=== PATIENT | male | born 1965 | race Caucasian/White ===

== ENCOUNTER 2022-06-02 22:12 | Inpatient (IN) | payer MEDICAID ==
[~2022-06-02] VITALS: Ht 170.2 cm; Wt 80.7 kg
[2022-06-02 23:46] LABS: HEMATOCRIT. 33.4 % (42.0-52.0); HEMOGLOBIN. 11.2 g/dL (14.0-18.0); MEAN CORPUSCULAR HEMOGLOBIN 33.6 pg (28.0-32.0); MEAN CORPUSCULAR VOLUME 99.6 fL (80.0-94.0); MEAN PLATELET VOLUME 7.4 fl (7.4-10.4); PLATELET 127 x1000/uL (130-400); RED BLOOD CELL COUNT 3.35 mill/uL (4.7-6.1)
[2022-06-03] LABS: CHLORIDE 94 mEq/L (98-107); ETHANOL BLOOD < 10 mg/dL
[2022-06-03 01:08] LABS: PLATELET ESTIMATE NORMAL
[2022-06-03] MEDS ORDERED: ASPIRIN 325MG EC TABLET PO ONE (02:15)
[2022-06-03 09:50] VITALS: BP 125/50
[2022-06-03 12:00] VITALS: BP 128/68
[2022-06-03 13:57] VITALS: BP 125/50
[2022-06-03] MEDS ORDERED: VANCOMYCIN 1G PREMIX 200 ML IV SCH (14:00)
[2022-06-03] MEDS ORDERED: ACETAMINOPHEN 325MG TABLET PO PRN (14:00)
[2022-06-03] MEDS ORDERED: ONDANSETRON HCL 4MG/2ML INJ IV PRN (14:00)
[2022-06-03] MEDS ORDERED: CLONIDINE 0.1MG TABLET PO PRN (14:00)
[2022-06-03 14:30] LABS: HEPATITIS B SURFACE ANTIGEN NEGATIVE
[2022-06-03] MEDS ORDERED: LEVOFLOXACIN 500MG PREMIX 100 ML IV SCH (15:00)
[2022-06-03] MEDS ORDERED: LEVE500T98 MT (15:35)
[2022-06-03] MEDS ORDERED: NEPVIT MT (15:35)
[2022-06-03] MEDS ORDERED: BISA10SU62 RC (15:35)
[2022-06-03] MEDS ORDERED: HYDR-4134 MT (15:35)
[2022-06-03] MEDS ORDERED: SEVE800T8 MT (15:35)
[2022-06-03] MEDS ORDERED: TOPUD MT (15:35)
[2022-06-03] MEDS ORDERED: LABE300T3 MT (15:35)
[2022-06-03] MEDS ORDERED: MOM PO (15:35)
[2022-06-03 16:00] VITALS: BP 126/70
[2022-06-03] MEDS ORDERED: VANCOMYCIN 1.25GM PMX (XELLIA) 250 ML IV NR (16:00)
[2022-06-03] MEDS: ENOXAPARIN 30MG/0.3ML SYR SUBCUT SCH (17:32)
[2022-06-03 18:17] LABS: CREATINE KINASE MB FRACTION 3.3 ng/mL (0.5-3.6)
[2022-06-03 20:00] VITALS: BP 110/53
[2022-06-03] MEDS ORDERED: DEXTROSE 50% WATER 50ML SYRINGE IV PRN (23:30)
[2022-06-04] VITALS: BP 115/62
[2022-06-04 04:00] VITALS: BP 110/64
[2022-06-04] MEDS: BLOOD SUGAR DIAGNOSTIC STRIP TEST SCH ×4 (07:10→21:00)
[2022-06-04] MEDS: INSULIN LISPRO 100 UNITS/ML SUBCUT SCH ×4 (07:40→21:00)
[2022-06-04 08:00] VITALS: BP 102/50
[2022-06-04 12:00] VITALS: BP 113/50
[2022-06-04] MEDS: ENOXAPARIN 30MG/0.3ML SYR SUBCUT SCH (15:29)
[2022-06-04 16:00] VITALS: BP 112/52
[2022-06-04 20:00] VITALS: BP 110/54
[2022-06-05] VITALS: BP 106/52
[2022-06-05 00:01] LABS: BASOPHILS % 0.9 % (0.0-2.0); EOSINOPHILS % 1.5 % (0.0-5.0); HEMATOCRIT. 35.7 % (42.0-52.0); HEMOGLOBIN. 12.2 g/dL (14.0-18.0); LYMPHOCYTES % 18.1 % (20.0-50.0); MEAN CORPUSCULAR HEMOGLOBIN 34.4 pg (28.0-32.0); MEAN CORPUSCULAR VOLUME 100.8 fL (80.0-94.0); MEAN PLATELET VOLUME 7.2 fl (7.4-10.4); MONOCYTES % 9.7 % (2.0-8.0); NEUTROPHILS % 69.8 % (40.0-76.0); PLATELET 125 x1000/uL (130-400); RED BLOOD CELL COUNT 3.54 mill/uL (4.7-6.1); RED CELL DISTRIBUTION WIDTH 15.3 % (11.6-14.6)
[2022-06-05 00:16] LABS: CHLORIDE 98 mEq/L (98-107)
[2022-06-05 04:00] VITALS: BP 107/52
[2022-06-05] MEDS: INSULIN LISPRO 100 UNITS/ML SUBCUT SCH ×4 (07:19→21:00)
[2022-06-05] MEDS: BLOOD SUGAR DIAGNOSTIC STRIP TEST SCH ×4 (07:19→21:00)
[2022-06-05 07:54] VITALS: BP 90/50
[2022-06-05 11:06] VITALS: BP 118/41
[2022-06-05] MEDS: ENOXAPARIN 30MG/0.3ML SYR SUBCUT SCH (14:04)
[2022-06-05] MEDS ORDERED: LEVOFLOXACIN 250MG PREMIX 50 ML IV SCH (15:00)
[2022-06-05 15:10] VITALS: BP 135/46
[2022-06-05] MEDS ORDERED: VANCOMYCIN 750MG PMX (XELLIA) 150 ML IV SCH (18:00)
[2022-06-05 20:00] VITALS: BP 120/62
[2022-06-06] VITALS: BP 106/51
[2022-06-06 04:00] VITALS: BP 111/62
[2022-06-06] MEDS: INSULIN LISPRO 100 UNITS/ML SUBCUT SCH ×4 (07:09→21:00)
[2022-06-06] MEDS: BLOOD SUGAR DIAGNOSTIC STRIP TEST SCH ×4 (07:09→21:00)
[2022-06-06 07:38] VITALS: BP 90/50
[2022-06-06 11:39] VITALS: BP 126/85
[2022-06-06 13:02] LABS: HEMOGLOBIN. 11.5 g/dL (14.0-18.0); MEAN CORPUSCULAR HEMOGLOBIN 33.5 pg (28.0-32.0); MEAN CORPUSCULAR VOLUME 102.3 fL (80.0-94.0); MEAN PLATELET VOLUME 8.9 fl (7.4-10.4); PLATELET 68 x1000/uL (130-400); RED BLOOD CELL COUNT 3.42 mill/uL (4.7-6.1); RED CELL DISTRIBUTION WIDTH 15.7 % (11.6-14.6)
[2022-06-06 13:08] LABS: INR 1.3; PARTIAL THROMBOPLASTIN TIME 26.1 sec (23.4-31.0); PROTHROMBIN TIME 13.6 sec (9.6-11.0)
[2022-06-06 14:08] LABS: NUCLEATED RED BLOOD CELLS 1 /100 WBC
[2022-06-06 14:09] LABS: PLATELET ESTIMATE DECREASED
[2022-06-06 15:04] VITALS: BP 90/50
[2022-06-06 20:00] VITALS: BP 95/45
[2022-06-06 20:24] LABS: HEPATITIS B SURFACE ANTIGEN NEGATIVE
[2022-06-07] VITALS: BP 100/51
[2022-06-07 04:00] VITALS: BP 107/65
[2022-06-07] MEDS: BLOOD SUGAR DIAGNOSTIC STRIP TEST SCH ×4 (07:10→21:00)
[2022-06-07] MEDS: INSULIN LISPRO 100 UNITS/ML SUBCUT SCH ×4 (07:40→21:00)
[2022-06-07 08:00] VITALS: BP 138/69
[2022-06-07] MEDS ORDERED: LIDOCAINE HCL 1% 10 MG/ML 10ML VIAL ONE (08:44)
[2022-06-07] MEDS ORDERED: SODIUM BICARBONATE 4% (2.4MEQ) 5ML VIAL IV ONE (08:44)
[2022-06-07] MEDS ORDERED: LEVOFLOXACIN 250MG TABLET PO SCH (11:00)
[2022-06-07 12:00] VITALS: BP 148/55
[2022-06-07] MEDS: LEVETIRACETAM 500MG PREMIX 100 ML IV SCH (18:13)
[2022-06-07 20:00] VITALS: BP 94/57
[2022-06-07] MEDS ORDERED: LEVETIRACETAM 500MG PREMIX 100 ML IV SCH (21:00)
[2022-06-08] VITALS: BP 99/47
[2022-06-08 04:00] VITALS: BP 100/55
[2022-06-08] MEDS: INSULIN LISPRO 100 UNITS/ML SUBCUT SCH ×4 (07:40→21:00)
[2022-06-08 08:00] VITALS: BP 98/43
[2022-06-08] MEDS: LEVETIRACETAM 500MG PREMIX 100 ML IV SCH ×2 (09:23→21:00)
[2022-06-08 12:00] VITALS: BP 121/46
[2022-06-08] MEDS: BLOOD SUGAR DIAGNOSTIC STRIP TEST SCH ×3 (12:03→21:00)
[2022-06-08] MEDS ORDERED: VANCOMYCIN 500MG PREMIX 100 ML IV NR (14:00)
[2022-06-08 20:00] VITALS: BP 106/34
[2022-06-09] VITALS: BP 121/36
[2022-06-09] MEDS: BLOOD SUGAR DIAGNOSTIC STRIP TEST SCH (07:10)
[2022-06-09] MEDS: INSULIN LISPRO 100 UNITS/ML SUBCUT SCH (07:40)
[2022-06-09] MEDS: LEVETIRACETAM 500MG PREMIX 100 ML IV SCH (09:14)
[2022-06-09 12:00] VITALS: BP 111/52
[2022-06-09 15:19] LABS: BASOPHILS % 0.9 % (0.0-2.0); EOSINOPHILS % 3.2 % (0.0-5.0); HEMATOCRIT. 33.8 % (42.0-52.0); HEMOGLOBIN. 11.5 g/dL (14.0-18.0); LYMPHOCYTES % 16.1 % (20.0-50.0); MEAN CORPUSCULAR HEMOGLOBIN 33.5 pg (28.0-32.0); MEAN CORPUSCULAR VOLUME 98.2 fL (80.0-94.0); MEAN PLATELET VOLUME 6.9 fl (7.4-10.4); MONOCYTES % 9.7 % (2.0-8.0); NEUTROPHILS % 70.1 % (40.0-76.0); PLATELET 128 x1000/uL (130-400); RED BLOOD CELL COUNT 3.45 mill/uL (4.7-6.1); RED CELL DISTRIBUTION WIDTH 14.9 % (11.6-14.6)
[2022-06-09 16:00] VITALS: BP 98/51
== END 2022-06-09 17:25 | DRG 194 ==
LOC: ER 22:12 → MICUSO 06-03 02:11 → EDBEDREQTM 06-03 02:25 → EDBEDREQ 06-03 02:25 → 8WST 06-03 10:08
PROVIDERS: ADMIT Internal Medicine; ATTEND Internal Medicine
PROC: 5A1D70Z Performance of Urinary Filtration, Intermittent, Less than 6 Hours Per Day (ICD-10-PCS; principal; 2022-06-03)
PROC: 5A1D70Z Performance of Urinary Filtration, Intermittent, Less than 6 Hours Per Day (ICD-10-PCS; 2022-06-05)
PROC: 0W9G3ZZ Drainage of Peritoneal Cavity, Percutaneous Approach (ICD-10-PCS; 2022-06-07)
PROC: 5A1D70Z Performance of Urinary Filtration, Intermittent, Less than 6 Hours Per Day (ICD-10-PCS; 2022-06-07)
DX: I13.2 Hypertensive heart and chronic kidney disease with heart failure and with stage 5 chronic kidney disease, or end stage renal disease (principal); G93.40 Encephalopathy, unspecified; I31.39 Other pericardial effusion (noninflammatory); N18.6 End stage renal disease; I69.354 Hemiplegia and hemiparesis following cerebral infarction affecting left non-dominant side; D64.9 Anemia, unspecified; E11.22 Type 2 diabetes mellitus with diabetic chronic kidney disease; E78.5 Hyperlipidemia, unspecified; I48.0 Paroxysmal atrial fibrillation; Z20.822 Contact with and (suspected) exposure to COVID-19; I50.9 Heart failure, unspecified; E87.6 Hypokalemia; K21.9 Gastro-esophageal reflux disease without esophagitis; B19.20 Unspecified viral hepatitis C without hepatic coma; Z99.2 Dependence on renal dialysis; Z91.15 Patient's noncompliance with renal dialysis
CPT/HCPCS: 36415; 49083; 71045; 71250; 76705; 80048; 80053; 80202; 80307; 80320; 80329; 82140; 82553; 82962; 83036; 83735; 83880; 84484; 85025; 86705; 86709; 86803; 87340; 87426; 93005; 93306; 95816; 99285; J1650; J1953; J1956; J3370; J3490; G0480